=== PATIENT | male | born 1945 | race Caucasian/White ===

== ENCOUNTER 2017-06-30 10:35 | Emergency (ER) | payer MEDICARE ==
--- NOTE | 2017-06-30 11:39 | RAD ---
RIGHT FOOT THREE VIEWS: HISTORY: The patient stepped on glass, along the underside of the foot, laterally, and now has swelling and re dness. FINDINGS: There are vascular calcifications noted. 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 This may be the se quelae of an old injury. I think it is less likely to be acute in nature. The swelling appears to be along the lateral aspect of the foot and the dorsal side of the foot. I d o not see any definite plain film evidence for osteomyelitis. IMPRESSION: 1. Some lucency through the distal phalanx of the great toe. I believe this is sequelae of an old f racture. 2. Soft tissue swelling along the lateral and dorsal side of the foot. No plain film evidence for o steomyelitis. POS: [facility]
== END 2017-06-30 11:35 | disposition home or self-care (01) ==
LOC: NAV ERS 10:35
DX: S91.331A Puncture wound without foreign body, right foot, initial encounter (principal); I48.91 Unspecified atrial fibrillation; I10 Essential (primary) hypertension; F17.220 Nicotine dependence, chewing tobacco, uncomplicated; Z79.82 Long term (current) use of aspirin; Z79.899 Other long term (current) drug therapy; W25.XXXA Contact with sharp glass, initial encounter
CPT/HCPCS: 28190; 87070; 87077; 87186; 87205